=== PATIENT | female | born 1990 | race Caucasian/White ===

== ENCOUNTER 2024-04-14 10:02 | Outpatient (CLI) | payer BC ==
[2024-04-14] MEDS ORDERED: Iopamidol 370 76% 100 ML VIAL ONE (12:11)
== END 2024-04-14 10:03 | disposition home or self-care (01) ==
LOC: BICCT 10:02
PROVIDERS: ATTEND Physician Assistant Medical
DX: K76.0 Fatty (change of) liver, not elsewhere classified (principal); R10.10 Upper abdominal pain, unspecified
CPT/HCPCS: 74177